=== PATIENT | male | born 1955 | race Caucasian/White ===

== ENCOUNTER 2020-06-26 09:05 | Outpatient (CLI) | payer BC, SELFPAY ==
--- NOTE | ~2020-06-26 | CT_ITS ---
EXAMINATION: CT abdomen pelvis w con EXAM DATE: 06/26/2020 09:35 INDICATION: Left lower quadrant pain for 2 weeks. History diverticulitis. TECHNIQUE: Spiral CT of the abdomen and pelvis was performed following intravenous injection of 100 m L Omnipaque 350. Axial, coronal and sagittal images of the abdomen and pelvis were reviewed. The do se-length product (DLP) for this examination was 793.70 mGy-cm. The exposure was tailored according to patient size (auto mA exposure control), and iterative reconstruction (ASIR) was used as additiona l dose reduction technique. Comparison is made to prior examination from 12/16/2018. FINDINGS: There is a hypodensity in the liver, segment 7 measuring 2.4 cm consistent with a cyst. Th e spleen, pancreas, and adrenal glands are unremarkable. There is a 2 cm splenule. Gallbladder is unr emarkable. No biliary obstruction. Portal and splenic veins are patent. Kidneys enhance symmetrica lly. There is no hydronephrosis. Left renal 2.7 cm cyst. There is an indeterminate 1.1 cm right renal midpole lesion, could be hemorrhagic cyst but a follow-u p kidney ultrasound recommended to determine better characterize. There is mild prostatomegaly. The bladder is unremarkable. There is no retroperitoneal or pelvic lymphadenopathy. Small to moderate right, small left inguinal fat-containing hernias. Congenital malrotation/nonrotation spectrum, patient small bowel is on the right and colon on the lef t. There is extensive descending and sigmoid colonic diverticulosis. There is moderate amount of genet sigmoid inflammation most likely uncomplicated diverticulitis. The appendix is normal. The stomach a nd small bowel are unremarkable. There is moderate amount of colonic stool. No free intraperitonea l gas. The heart is normal in size. There are no pericardial or pleural effusions. The lung bases are unremarkable. There are no osteoblastic or osteolytic lesions identified. IMPRESSION: 1. Findings consistent with acute uncomplicated sigmoid colonic diverticulitis. 2. Small right renal indeterminate lesion; recommend nonemergent kidney ultrasound. 3. Inguinal fat-containing hernias right greater than left. 4. Moderate prostatomegaly. 5. Bowel malrotation/nonrotation. Reviewed, dictated and finalized at location A. IMPRESSION: 1. Findings consistent with acute uncomplicated sigmoid colonic diverticulitis . 2. Small right renal indeterminate lesion; recommend nonemergent kidney ultras ound. 3. Inguinal fat-containing hernias right greater than left. 4. Moderate prostatomegaly. 5. Bowel malrotation/nonrotation.
[2020-06-26 09:29] LABS: Estimated Glomerular Filt Rate > 60
== END 2020-06-26 09:06 | disposition home or self-care (01) ==
LOC: ANHIMG 09:09
PROVIDERS: PCP Internal Medicine; Visit Provider Clinical Nurse Specialist
DX: R10.9 Unspecified abdominal pain (principal); N28.9 Disorder of kidney and ureter, unspecified; K40.90 Unilateral inguinal hernia, without obstruction or gangrene, not specified as recurrent; N40.0 Benign prostatic hyperplasia without lower urinary tract symptoms; Q43.3 Congenital malformations of intestinal fixation
CPT/HCPCS: 74177; Q9967

== ENCOUNTER 2020-07-08 15:15 | Outpatient (CLI) | payer BC, SELFPAY ==
--- NOTE | ~2020-07-08 | US_ITS ---
US renal BI DATE: 07/08/2020 16:03 INDICATION: Renal lesion discovered on CT abdomen examination TECHNIQUE: Real-time imaging of kidneys and urinary bladder COMPARISON: 06/26/2020 CT abdomen pelvis with IV contrast material FINDINGS: The right kidney measures approximately 12 cm length, left kidney approximately 13 cm lengt h. No simple cyst is noted to account for the reported posterior right 1.1 cm hypoenhancing lesion. There is no cyst to account for the 2.7 cm hypoenhancing lesion in the anterior aspect of the mid to lower left kidney. MRI of the kidneys is recommended. There is very prominent prostatomegaly, impressing the base of the urinary bladder. There is generali zed bladder wall thickening, likely secondary to bladder outlet obstruction due to prostatomegaly. IMPRESSION: Bilateral renal masses; consider MR imaging of the kidneys to evaluate for possible hyper nephroma Severe prostatomegaly, with associated generalized bladder wall thickening Reviewed, dictated and finalized at Location A. Reviewed, dictated and finalized at location A. IMPRESSION: Bilateral renal masses; consider MR imaging of the kidneys to evalu ate for possible hypernephroma Severe prostatomegaly, with associated generalized bladder wall thickening
== END 2020-07-08 15:16 | disposition home or self-care (01) ==
PROVIDERS: PCP Internal Medicine; Visit Provider Clinical Nurse Specialist
DX: N28.9 Disorder of kidney and ureter, unspecified (principal); N40.0 Benign prostatic hyperplasia without lower urinary tract symptoms
CPT/HCPCS: 76775

== ENCOUNTER 2020-07-18 08:41 | Outpatient (CLI) | payer BC, SELFPAY ==
--- NOTE | ~2020-07-18 | MR_ITS ---
EXAMINATION: MR abdomen wo/w con DATE: 07/18/2020 10:01 INDICATION: Indeterminate right renal lesion identified on prior CT and confirmed on ultrasound. TECHNIQUE: Magnetic resonance imaging (MRI) of the abdomen was performed without and with 19 mL Multi lara intravenous contrast. Sequences included coronal T2-weighted SS-FSE, coronal and axial FS 2D-F IESTA, axial STIR FSE, axial T2-weighted SS-FSE, axial T2-weighted FS SS-FSE, axial diffusion-weighte d SE, axial dual-echo T1-weighted FSPGR, and axial and coronal T1-weighted LAVA. Postcontrast axial T 1-weighted LAVA images were obtained in a time course. Postcontrast coronal T1-weighted LAVA images w ere obtained. COMPARISON: CT dated 06/26/2020 and ultrasound dated 07/08/2020 FINDINGS: Heart size is normal. No pericardial or pleural effusion. A couple T2 hyperintense nonenhancing hepat ic cysts in the right hepatic lobe the larger measuring 2.0 cm. Spleen, pancreas and bilateral adrena l glands are normal. 1.8 cm splenule which demonstrates identical signal and enhancement characterist ics to the adjacent caudal aspect of the spleen. Multiple small gallstones within the normal gallblad haley. No pericholecystic inflammatory straining to suggest acute cholecystitis. There is intestinal ma lrotation with the small bowel remaining in the right abdomen. Numerous diverticula along the colon w hich is located primarily in the left abdomen but without adjacent inflammatory stranding to suggest diverticulitis. 2.6 cm nonenhancing proteinaceous/hemorrhagic exophytic cyst at the upper pole of the left kidney wit h slightly decreased but still hyperintense T2 signal and mildly increased attenuation on prior CT. T here are couple smaller more typical T2 hyperintense appearing nonenhancing parapelvic cysts in the l eft kidney measuring up to 1.5 cm. 1.3 cm enhancing nodule at the posterior lower pole of the right k idney corresponding to the lesion of concern on prior CT and ultrasound and consistent with renal david l carcinoma. No pathologically enlarged abdominal lymphadenopathy. Bones are unremarkable with normal marrow signal throughout. IMPRESSION: 1. 1.3 cm enhancing nodule at the lower pole of the right kidney consistent with renal cell carcinoma . 2. Intestinal malrotation. 3. Diverticulosis. Reviewed, dictated and finalized at location A. IMPRESSION: 1. 1.3 cm enhancing nodule at the lower pole of the right kidney consistent wit h renal cell carcinoma. 2. Intestinal malrotation. 3. Diverticulosis.
== END 2020-07-18 08:42 | disposition home or self-care (01) ==
PROVIDERS: PCP Internal Medicine; Visit Provider Clinical Nurse Specialist
DX: N28.89 Other specified disorders of kidney and ureter (principal); K57.90 Diverticulosis of intestine, part unspecified, without perforation or abscess without bleeding
CPT/HCPCS: 74183; A9577

== ENCOUNTER 2022-08-17 08:03 | Outpatient (CLI) | payer BC, SELFPAY ==
[2022-08-17 18:17] LABS: Basophils Percent Auto 0.3 % (0.2-1.2); Eosinophils Absolute Auto 0.1 K/mm3 (0-0.3); Eosinophils Percent Auto 1.4 % (0-4.4); Hematocrit 44.5 % (42.0-52.0); Hemoglobin 14.9 g/dL (14.0-18.0); Immature Granulocyte Absolute 0.02 K/mm3 (0.00-0.031); Immature Granulocyte Percent A 0.3 % (0-0.5); Lymphocytes Absolute Auto 1.25 K/mm3 (0.9-3.2); Lymphocytes Percent Auto 21.8 % (18.3-44.2); Mean Corpuscular HGB Conc 33.5 g/dl (32-36); Mean Corpuscular Hemoglobin 32.4 pg (26-34); Mean Corpuscular Volume 96.7 fl (80-100); Mean Platelet Volume 9.6 fl (7.4-10.4); Monocytes Absolute Auto 0.5 K/mm3 (0.1-0.6); Monocytes Percent Auto 8.2 % (2.6-8.5); Neutrophils Absolute Auto 3.9 K/mm3 (1.3-6.7); Platelet Count Result 268 k/mm3 (150-375); Red Cell Distribution Width 12.6 % (11.5-14.5); White Blood Count 5.7 K/mm3 (4.5-10.0)
[2022-08-17 18:21] LABS: Alanine Aminotransferase 28 U/L (6-50); Alkaline Phosphatase 98 U/L (38-126); Anion Gap 6 mmol/L (8-16); Aspartate Amino Transferase 29 U/L (17-59); Bilirubin,Total 0.7 mg/dL (0.2-1.3); Blood Urea Nitrogen 17 mg/dL (9-20); Calcium 8.7 mg/dL (8.4-10.2); Carbon Dioxide 30 mmol/L (22-30); Chloride 101 mmol/L (98-107); Cholesterol 169 mg/dL (0-200); Estimated Glomerular Filt Rate > 60; Glucose 89 mg/dL (65-110); HDL Direct 48 mg/dL; Potassium 4.1 mmol/L (3.4-5.0); Sodium 137 mmol/L (137-145); Triglycerides 82 mg/dL (<150)
[2022-08-17 18:33] LABS: LDL Cholesterol Direct 93 mg/dL
[2022-08-17 18:52] LABS: Prostate Specific Antigen 2.6 ng/mL (< OR = 4.0)
== END 2022-08-17 08:04 | disposition home or self-care (01) ==
LOC: ANHGOSHLAB 08:05
PROVIDERS: Clinical Nurse Specialist; Nurse Practitioner; PCP Internal Medicine; Visit Provider Internal Medicine
DX: F41.9 Anxiety disorder, unspecified (principal); Z13.220 Encounter for screening for lipoid disorders; Z12.5 Encounter for screening for malignant neoplasm of prostate
CPT/HCPCS: 36415; 80053; 80061; 84153; 84443; 85025; G0103

== ENCOUNTER 2023-07-24 00:43 | Day surgery (SDC) | payer BC, SELFPAY ==
[2023-07-12 16:00] VITALS: BMI 29.2
--- NOTE | 2023-07-24 12:25 | WPDANESEPPF ---
Anes - Initial Pre Proc Eval Procedure: Operation Date: 07/24/23 14:00 Proposed Procedures p Colonoscopy - Kaiser Caballero MD Date/Time: 07/24/23 12:25 Surgeon: Kaiser Caballero MD Pre Op Diagnosis: Diverticulosis of large intestine without perforat Patient Data Age: 68 Gender: M Height: 1.83 m Weight: 97.6 kg Allergies Allergy/AdvReac Type Severity Reaction Status Date / Time No Known Allergies Allergy Verified 07/24/23 12:46 Home Medications Medication Instructions Recorded Confirmed Type cetirizine 10 mg capsule (Zyrtec) 10 mg PO DAILY 12/20/18 07/12/23 History ipratropium 0.5 mg-albuterol 3 mg 3 ml inhalation Q4-6H PRN 04/23/19 07/12/23 Rx (2.5 mg base)/3 mL nebulization shortness of breath or wheezing soln #180 mL mometasone-formoterol HFA 100 2 puff inhalation Q12H #13 grams 09/05/22 07/12/23 Rx mcg-5 mcg/actuation aerosol inhaler (Dulera) fluticasone propionate 50 1 spray intranasal Q12H #16 mL 12/20/22 07/12/23 Rx mcg/actuation nasal spray,suspension (Flonase Allergy Relief) montelukast 10 mg tablet 10 mg PO DAILY #90 tabs 02/27/23 07/12/23 Rx primidone 50 mg tablet See Rx Instructions .Route 03/13/23 07/12/23 Rx .COMPLEX #180 tabs tamsulosin 0.4 mg capsule See Rx Instructions .Route 06/12/23 07/12/23 Rx .COMPLEX #90 caps Patient hx anesthesia problems: none Family hx anesthesia problems: none Results Review: All pre-operative results and documents have been reviewed as part of the pre-operative evaluation. [facility] Past Medical History Medical History Asthma Basal cell carcinoma of neck Diverticulitis Essential tremor Hemorrhoids Kidney stones Malrotation colon Pneumonia Seasonal allergies Surgical History Surgical History H/O inguinal hernia repair Family History Family History Mother Family history of Alzheimer's disease Father Family history of lung cancer Family history of throat cancer Sibling Family history of malignant neoplasm of breast in first degree relative Other Family history of allergic disorder Family history of malignant neoplasm Social History Social History Smoking status: Never smoker Alcohol intake: current Alcohol use details: occasional Substance use: never Substance use type: does not use Lack of Transportation: No Lack of Food: Never True Current Housing: I Have Housing Concerned About Future Housing: No Difficulty Paying Gas/Electric Bills: No Difficulty Paying for Meds: No Currently Unemployed: No Education: Bachelor's Degree Difficulty w/ Childcare or Family Care: No Living arrangements: with family Spiritual care concerns: No Anes - Eval Final PreProcedure Day of Procedure 07/24/23 12:25 Patient weight: overweight Heart: regular rate and rhythm Lungs: clear to auscultation Airway: Mallampati scale class II Neurological: alert and oriented Last oral intake: >/= 8 hours ASA classification: III Emergent: no Anesthetic plan: proceed Anesthesia type and monitoring: general GIVS and standard monitoring Results Review: All pre-operative results and documents have been reviewed as part of the pre-operative evaluation. Informed Consent: The patient's anesthetic plan and its attendant risks and benefits were discussed with the patient/family/POA. Questions were solicited and answers provided to the satisfaction of the patient/family/POA.
[2023-07-24 12:47] VITALS: BP 128/85; PULSE 73; RESP 20; TEMP 36.4; O2SAT 97
[2023-07-24] MEDS: LACTATED RINGERS 1,000 ML 150 ML IV CONT (12:56)
--- NOTE | 2023-07-24 13:42 | PM.HPGS ---
History of Present Illness History of Present Illness Consent: Risks, benefits, and alternatives have been discussed and questions answered. Patient agrees to proceed with procedure. Chief complaint: colon screening Narrative: Navid Bah is a 68 year old male here for screening colonoscopy, last one 2018 Review of Systems Review of Systems: All systems reviewed & are unremarkable except as noted in HPI and below PMFSH Past Medical History Medical History (Updated 07/24/23 @ 13:43 by Kaiser Caballero MD) Asthma Basal cell carcinoma of neck Colon cancer screening Diverticulitis Essential tremor Hemorrhoids Kidney stones Malrotation colon Pneumonia Seasonal allergies Surgical History Surgical History H/O inguinal hernia repair Family History Family History Mother Family history of Alzheimer's disease Father Family history of lung cancer Family history of throat cancer Sibling Family history of malignant neoplasm of breast in first degree relative Other Family history of allergic disorder Family history of malignant neoplasm Social History Social History Smoking status: Never smoker Alcohol intake: current Alcohol use details: occasional Substance use: never Substance use type: does not use Lack of Transportation: No Lack of Food: Never True Current Housing: I Have Housing Concerned About Future Housing: No Difficulty Paying Gas/Electric Bills: No Difficulty Paying for Meds: No Currently Unemployed: No Education: Bachelor's Degree Difficulty w/ Childcare or Family Care: No Living arrangements: with family Spiritual care concerns: No Meds Home Medications and Allergies Home Medications Medication Instructions Recorded Confirmed Type cetirizine 10 mg capsule (Zyrtec) 10 mg PO DAILY 12/20/18 07/12/23 History ipratropium 0.5 mg-albuterol 3 mg 3 ml inhalation Q4-6H PRN 04/23/19 07/12/23 Rx (2.5 mg base)/3 mL nebulization shortness of breath or wheezing soln #180 mL mometasone-formoterol HFA 100 2 puff inhalation Q12H #13 grams 09/05/22 07/12/23 Rx mcg-5 mcg/actuation aerosol inhaler (Dulera) fluticasone propionate 50 1 spray intranasal Q12H #16 mL 12/20/22 07/12/23 Rx mcg/actuation nasal spray,suspension (Flonase Allergy Relief) montelukast 10 mg tablet 10 mg PO DAILY #90 tabs 02/27/23 07/12/23 Rx primidone 50 mg tablet See Rx Instructions .Route 03/13/23 07/12/23 Rx .COMPLEX #180 tabs tamsulosin 0.4 mg capsule See Rx Instructions .Route 06/12/23 07/12/23 Rx .COMPLEX #90 caps Allergies Allergy/AdvReac Type Severity Reaction Status Date / Time No Known Allergies Allergy Verified 07/24/23 12:46 Vital Signs Vital Signs - 24 hr 07/24/23 12:47 Temperature 97.5 F L Pulse Rate 73 Respiratory Rate 20 Blood Pressure 128/85 Pulse Oximetry 97 Oxygen Delivery Room Air Exam Const: General: comfortable and no acute distress HENMT: Face/Nose/Sinus: Normal nares present Eyes: General: appearance normal, both eyes and all related structures Neck: Neck: no JVD Resp: Auscultation: clear to auscultation bilaterally Cardio: Rate: regular rate Rhythm: regular rhythm GI: Inspection: non-distended GI Palp: Yes Soft to palpation Skin: General skin exam: normal color Neuro: General: gait normal Speech: normal speech Extrem: General: normal to inspection Psych: Mental Status: mental status grossly normal Assessment and Plan Assessment and plan (1) Colon cancer screening: Code(s): Z12.11 - Encounter for screening for malignant neoplasm of colon Status: Acute Assessment and Plan: colonoscopy
--- NOTE | 2023-07-24 13:56 | SUR.OPER ---
SHERI Dominique used oral suction during procedure.
[2023-07-24 14:04] VITALS: BP 116/65; PULSE 63; RESP 23; O2SAT 95
[2023-07-24 14:14] VITALS: BP 116/60; PULSE 59; RESP 16; O2SAT 96
[2023-07-24 14:18] VITALS: BP 118/67; PULSE 57; RESP 22; O2SAT 99
== END 2023-07-24 14:30 | disposition home or self-care (01) ==
PROVIDERS: PCP Internal Medicine; Visit Provider Internal Medicine Gastroenterology
PROC: 0DJD8ZZ Inspection of Lower Intestinal Tract, Via Natural or Artificial Opening Endoscopic (ICD-10-PCS; CPT 45378; principal; 2023-07-24 14:00)
DX: Z12.11 Encounter for screening for malignant neoplasm of colon (principal); D12.2 Benign neoplasm of ascending colon; D12.3 Benign neoplasm of transverse colon; K57.30 Diverticulosis of large intestine without perforation or abscess without bleeding; K64.8 Other hemorrhoids; I10 Essential (primary) hypertension; J45.909 Unspecified asthma, uncomplicated; Z79.51 Long term (current) use of inhaled steroids
CPT/HCPCS: 45380; 45385; 88305; J2001; J2704; J7120

== ENCOUNTER 2024-06-24 15:15 | Outpatient (CLI) | payer BC, SELFPAY ==
--- NOTE | ~2024-06-24 | XR_ITS ---
CHEST RADIOGRAPH, PA AND LATERAL CLINICAL HISTORY: Cough x 3 mos, hx of asthma, non smoker . COMPARISON: None available TECHNIQUE: PA and lateral views of the chest. FINDINGS The cardiomediastinal silhouette is unremarkable. The lungs are clear. IMPRESSION: No focal infiltrate or effusion. Reviewed, dictated and finalized at location A.
== END 2024-06-24 15:16 | disposition home or self-care (01) ==
LOC: GOSHIMG 15:15
PROVIDERS: PCP Clinical Nurse Specialist; Visit Provider Clinical Nurse Specialist
DX: R05.3 Chronic cough (principal)
CPT/HCPCS: 71046

== ENCOUNTER 2024-09-09 09:05 | Outpatient (CLI) | payer BC, SELFPAY ==
--- OUTSIDE RECORDS SUMMARY | 2024-09-09 09:18 | XMS_ITS | Encounter Summary ---
Author Organization [facility] Address [address] [place] [address] Phone Care Team Providers Care Territory Development Manager Name Role Phone Lauro Sandoval DO Primary Care Provider +1- [phone] Encounter Details Date Type Department Care Team (Late st Contact Info) Description 07/24/2020 Telephone [facility] [address] [place] [address] [place] [address] [place] [address] Social History Tobacco Use Types Packs/Day Years Used Date Smoking Tobacco: Never AUDIT-C Answer Date Recorded Q1: How often do you have a drink containing alc ohol? 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
--- OUTSIDE RECORDS SUMMARY | 2024-09-09 09:18 | XMS_ITS | Referral Summary ---
Author Organization [facility] Address [address] [place] [address] Care Team Providers Care Physician Relations Representative Name Role Phone Lauro Sandoval DO Primary Care Provider [phone]- [phone] Allergies No known active allergies Medications montelukast (SINGULAIR) 10 mg tabletIndications: Maintenance Therapy for Asthma Take 10 mg by mouth every morning 1 Active tamsulosin (FLOMAX) 0.4 mg extended release capsuleIndications :benign prostatic hyperplasia with lower urinary tract sx Take 0.4 mg by mouth nightly 1 Active cetirizine (ZyrTEC) 10 mg tabletIndications: Allergic Rhinitis Take 10 mg by mouth every morning Active fluticasone propionate (FLONASE) 50 mcg/actuation nasal sprayIndications:A llergic Conjunctivitis Administer 1 spray into each nostril daily as needed for allergies Active mometasone-formote rol (DULERA 100) 100-5 mcg/actuation inhalerIndications :Maintenance Therapy for Asthma Inhale 2 puffs daily before breakfast Rinse mouth with water after use. Do not swallow. Active primidone (MYSOLINE) 50 mg tabletIndications: Essential Tremor Take 50 mg by mouth every morning Active Active Problems Problem Noted Date Diagnosed Date History of asthma 07/23/2020 History of kidney stones 07/23/2020 History of umbilical hernia 07/23/2020 Renal mass 07/23/2020 Resolved Problems Problem Noted Date Diagnosed Date Resolved Date Right inguinal hernia 01/26/20212021 Overview (01/26/2021): Added automatically from request for surgery [id number] Immunizations Immunization Administration Dates Next Due Influenza, Quadrivalent, Spl it, Preservative Free, Intramuscular 11/22/2019,11/27/2018,11/12/2016,11/29,12/20/2014 Influenza, Trivalent, IM (MDV) 11/30/2013 Moderna SARS-CoV-2 Monovalen t Vaccination (12+ YRS) 04/21/2020,03/12/2020 Tdap 12/26/2016 Social History Tobacco Use Types Packs/Day Years Used Date Smoking Tobacco: Never Smokeless Tobacco: Never Tobacco Cessation:Counseling Given: Not Answered AUDIT-C Answer Date Recorded Q1: How often do you have a drink containing alc ohol? 2-4 times a month 04/05/2021 Q2: How many drinks containi ng alcohol do you have on a typical day when you are drinking? 1 or 2 04/05/2021 Q3: How often do you have si x or more drinks on one occasion? 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 on file Not on file Not on file Last Filed Vital Signs Vital Sign Reading Time Taken Comments Blood Pressure 131/80 02/15/2023 2:03 PM SKIVER COUNTER Pulse 70 02/15/2023 2:03 PM SKIVER COUNTER Temperature 36.4 C (97.6 F) 05/03/2021 2:51 PM CDT Respiratory Rate 9 04/05/2021 12:20 PM SKIVER COUNTER Oxygen Saturation 97% 02/15/2023 2:03 PM SKIVER COUNTER Inhaled Oxygen Concentration - - Weight 100.2 kg (221 lb) 02/15/2023 2:03 PM SKIVER COUNTER Height 182.9 cm (6') 02/15/2023 2:03 PM SKIVER COUNTER Body Mass Index 29.97 02/15/2023 2:03 PM SKIVER COUNTER Plan of Treatment Not on file Medical Devices Implanted Type Area Molasses Feed Mixer Device Identifier Shelf Expiration Date Model / Serial / Lot [employer] Inc/C R Bard [id number] Bard Marlex 6x6in Monofilament Gold Standard Flat [facility] [id number] Implanted:Qty: 1 on 04/05/2021 by Corrina Lopez MD at [facility] Mesh Right: Inguinal [employer]/C R Bard 10/03/2025 [id number] / NA / Insurance [place] Advance Directives For more information, please contact: [phone] Documents on File Type Date Recorded Patient Non Garment Sewing Machine Operator Expl anation ADVANCE DIRECTIVE 09/22/2020 6:43 AM Care Teams Physician Relations Representative Relationship Specialty Start Date End Date Lauro Sandoval DO PCP - General Internal Medicine 07/13/20
--- OUTSIDE RECORDS SUMMARY | 2024-09-09 09:18 | XMS_ITS | Clinical Summary ---
Author Organization [facility] Address [address] [place] [address] Care Team Providers Care Chicken And Fish Butcher Name Role Phone Lauro Sandoval DO Primary Care Provider +1- [phone] Allergies No known active allergies Medications montelukast [...] (01/26/2021): Added automatically from request for surgery [id number] Immunizations Immunization Administration Dates Next Due Influenza, Quadrivalent, Spl it, Preservative Free, Intramuscular 11/22/2019,11/27/2018,11/12/2016,11/29,12/20/2014 Influenza, Trivalent, IM (MDV) 11/30/2013 Moderna SARS-CoV-2 Monovalen t Vaccination (12+ YRS) 04/21/2020,03/12/2020 Tdap 12/26/2016 Surgical History Surgery Date Site/Laterality Comments UMBILICAL HERNIA REPAIR 02/06/2015 - 02/06/2016 COLONOSCOPY 02/07/2020 - 02/05/2021 CRYOABLATION RENAL RIGHT 09/22/2020 Right Medical History Medical History Date Comments Asthma Kidney stones Umbilical hernia Family History Medical History Relation Name Comments Breast cancer Brother Lung cancer Father Anesthesia problems Neg Hx Relation Name Status Comments Brother Father Social History Tobacco Use Types Packs/Day Years [...] 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 Not on file Not on file Obstetrics History Last Filed Vital Signs Vital Sign Reading Time Taken Comments Blood Pressure 131/80 02/15/2023 2:03 PM PILING CUTTER Pulse 70 02/15/2023 2:03 PM PILING CUTTER Temperature 36.4 C (97.6 F) 05/03/2021 2:51 PM CDT Respiratory Rate 9 04/05/2021 12:20 PM PILING CUTTER Oxygen Saturation 97% 02/15/2023 2:03 PM PILING CUTTER Inhaled Oxygen Concentration - - Weight 100.2 kg (221 lb) 02/15/2023 2:03 PM PILING CUTTER Height 182.9 cm (6') 02/15/2023 2:03 PM PILING CUTTER Body Mass Index 29.97 02/15/2023 2:03 PM PILING CUTTER Plan of Treatment Health Maintenance Due Date Last Done Comments Colon Cancer Screening-Colonoscopy 1955 Depression Screening 1955 Hepatitis C Screening 1955 Prostate Cancer Screening-PSA 1955 Hepatitis B Screening 07/16/1975 Pneumococcal vaccine 65+ (1 of 1 - PCV) 07/16/2007 Zoster Vaccine (1 of 2) 07/16/2007 Fall Risk Assessment 04/05/2022 04/05/2021 Well Visit 65+ 2022 Covid-19 Vaccine (4 - 2023-2 5 season) 2023 12/24/2020, 04/21/2020, 03/12/2020 Influenza Vaccine (#1) 2024 , 11/22/2019, 11/27/2018, Additional history exists DTaP/Tdap/Td Vaccine (2 - Td or Tdap) 12/26/2026 12/26/2016 Medical Devices Implanted Type Area Song Plugger Device Identifier Shelf Expiration Date Model / Serial / Lot Davol Inc/C R Bard [id number] Bard Marlex 6x6in Monofilament Gold Standard Flat Sheet Groin - Sna - [id number] Implanted:Qty: 1 on 04/05/2021 by Corrina Lopez MD at [facility] Mesh Right: Inguinal [employer]/C R Bard 10/03/2025 [id number] / NA / Insurance [facility] [employer] [facility] MEDICARE Advance Directives For more information, please contact: [phone] Documents on File Type Date Recorded Patient Communication Technician Expl anation ADVANCE DIRECTIVE 09/22/2020 6:43 AM Care Teams Chicken And Fish Butcher Relationship Specialty Start Date End Date Lauro Sandoval DO PCP - General Internal Medicine 07/13/20
[2024-09-09 15:29] LABS: Anion Gap 8 mmol/L (4-12); Blood Urea Nitrogen 18 mg/dL (9-20); Calcium 9.2 mg/dL (8.4-10.2); Carbon Dioxide 28 mmol/L (22-30); Chloride 99 mmol/L (98-107); Estimated Glomerular Filt Rate > 60; Glucose 100 mg/dL (65-110); Potassium 3.9 mmol/L (3.4-5.0); Sodium 135 mmol/L (137-145)
[2024-09-09 16:41] LABS: Hemoglobin A1C 5.8 % (<5.7)
== END 2024-09-09 09:06 | disposition home or self-care (01) ==
LOC: ANHGOSHLAB 09:06
PROVIDERS: PCP Clinical Nurse Specialist; Visit Provider Clinical Nurse Specialist
DX: R73.9 Hyperglycemia, unspecified (principal); N28.89 Other specified disorders of kidney and ureter
CPT/HCPCS: 36415; 80048; 83036